=== PATIENT | male | born 1980 | race Caucasian/White ===

== ENCOUNTER 2019-09-14 12:08 | Emergency (ER) | payer MEDICAID ==
[~2019-09-14] VITALS: Ht 182.9 cm; Wt 136.4 kg
[2019-09-14 12:16] VITALS: Ht 182.9 cm; Wt 136.4 kg
[2019-09-14] MEDS ORDERED: GABAPENTIN300 MG PO (12:18)
[2019-09-14] MEDS ORDERED: HYDROCODON-ACE1 EAC2 PO (12:18)
[2019-09-14] MEDS ORDERED: BUPROPION HCL75 MG PO (12:19)
[2019-09-14] MEDS ORDERED: TRAZODONE HCL150 MG PO (12:19)
[2019-09-14] MEDS ORDERED: VALTREX500 MG PO (12:20)
[2019-09-14] MEDS ORDERED: CYCLOBENZAPRINE10 MG PO (12:47)
[2019-09-14 13:54] VITALS: BP 119/73
== END 2019-09-14 13:55 | disposition home or self-care (01) ==
LOC: D.ER 12:08
DX: G89.29 Other chronic pain (principal); M54.5 Low back pain; J45.909 Unspecified asthma, uncomplicated; Z72.0 Tobacco use